=== PATIENT | male | born 1935 | race Caucasian/White ===

== ENCOUNTER 2020-06-09 12:30 | Emergency (ER) | payer MEDICARE, OTHER ==
[~2020-06-09] VITALS: Ht 180 cm; Wt 75.4 kg
[~2020-06-09 12:30] MED LIST: ACHD5005 PO; ALPR0.25 PO; CHELATED MAGNESIUM PO; CHOL10007 PO; FINA5TAB6 PO; LACT20SO2 PO; SAW PALMETTO; TETRACYCLINE 250MG; TMSL.4C PO; [UNRECOGNIZED DRUG - OTHER] PO; magnesium; tylenol prn
[2020-06-09] MEDS ORDERED: LISINOPRIL (13:12)
--- NOTE | 2020-06-09 14:05 | ED Abdominal Pain ---
General Chief Complaint: - Urinary Stated Complaint: TROUBLE URINATING;CONSTIPATION Nursing Triage Note: AMB TO ROOM REPORTS UNABLE TO URINATE TODAY AND FEELING LIKE HE MIGHT BE CONSTIPATION. DOES HAVE HEMORRHOIDS. Sepsis Screen: No Definite Risk Source of Information: Patient Exam Limitations: No Limitations History of Present Illness Date Seen by Provider: Jun 09, 2020 Time Seen by Provider: 13:14 Initial Comments Here with report of lower abdominal fullness and rectal fullness feeling like he has to urinate and/or have bowel movement but is unable to. Last normal bowel movement was yesterday morning. Is urinating okay until last night but did not have his typical multiple urination needs overnight. He is unable to urinate this morning and unable to have a bowel movement. Does have history of hemorrhoids which his primary care doctor recommended not getting surgery for. Does have rather significant essential tremors and is only on lisinopril. Denies nausea, vomiting, diarrhea. Denies weakness, fevers, cough or sore throat. Reports eating and drinking okay. Timing/Duration: 12 Hours, Constant Severity/Quality: Moderate, Other (fullness) Location: Other (lower abdomen) Radiation: Other (suprapubic to rectal) Activities at Onset: None Modifying Factors: Improves With Resting Associated Symptoms: No Back Pain, No Chest Pain, No Diaphoresis, No Fever/Chills, No Nausea/Vomiting, No Shortness of Air, No Swelling/Mass in Abdomen, No Weakness Allergies and Home Medications Allergies Coded Allergies: No Known Drug Allergies (Verified , 02/16/08) Home Medications Alprazolam 0.25 Mg Tablet, 0.25 MG PO Q6H PRN for ANXIETY Prescribed by: ARTUR DENISE on 07/15/16 1158 Cholecalciferol (Vitamin D3) 1,000 Unit Capsule, 3,000 UNIT PO DAILY, (Reported) take 3 (1,000 units) tabs Hydrocodone Bit/Acetaminophen 1 Each Tablet, 1 EACH PO Q4H PRN for PAIN Prescribed by: ARTUR DENISE on 07/15/16 1158 Lactulose 20 Gm/30 Ml Solution, 10 GM PO BID Prescribed by: ARTUR DENISE on 07/14/16 1314 [chelated magnesium] , 250 MG PO DAILY, (Reported) [probiotics with FOS] , 2 TAB PO DAILY, (Reported) Patient Home Medication List Home Medication List Reviewed: Yes Review of Systems Review of Systems Constitutional: see HPI; No chills, No fever EENTM: No Symptoms Reported Respiratory: No Symptoms Reported Cardiovascular: No Symptoms Reported Gastrointestinal: See HPI; Denies Rectal Bleeding; Other (does feel like he has some rectal leakage.) Genitourinary: Denies Hematuria; Other (retention) Musculoskeletal: no symptoms reported Skin: no symptoms reported All Other Systems Reviewed Negative Unless Noted: Yes Past Civgtna-Qqgbwy-Idazkh Hx Past Med/Social Hx: Reviewed Nursing Past Med/Soc Hx Patient Social History Alcohol Use: Denies Use Recreational Drug Use: No Smoking Status: Never a Smoker Recent Foreign Travel: No Contact w/Someone Who Travel: No Recent Infectious Disease Expo: No Recent Hopitalizations: No Immunizations Up To Date Date of Pneumonia Vaccine: Oct 21, 2005 Seasonal Allergies Seasonal Allergies: No Past Medical History Surgeries: Yes (melanoma removed from cheek, nasal fx) Respiratory: No Cardiac: Yes Hypertension Neurological: Yes (TREMORS) Reproductive Disorders: No Benign Prostatic Hyperpl, UTI-Chronic Gastrointestinal: Yes Chronic Constipation, Hemorrhoids Musculoskeletal: No Endocrine: No Cancer: Yes Melanoma Psychosocial: Yes Sleep Difficulties, Anxiety Integumentary: No Blood Disorders: No Family Medical History Reviewed Nursing Family Hx Asthma Cardiovascular disease 19 MOTHER Diabetes mellitus G8 SISTER Hypertension G8 BROTHER Myocardial infarction 19 MOTHER Prostate cancer 19 FATHER Thyroid disease G8 SISTER Physical Exam Vital Signs Vital Signs - First Documented 06/09/20 12:51 Pulse 88 Resp 18 B/P (MAP) 144/72 (96) Pulse Ox 98 O2 Delivery Room Air Capillary Refill : Less Than 3 Seconds Height/Weight/BMI Height: 5'11.00" Weight: 152lbs. 4.0oz. [id number]; 23.00 BMI Method:Stated General Appearance: WD/WN, no apparent distress HEENT: PERRL/EOMI, pharynx normal Neck: full range of motion, supple Respiratory: lungs clear, normal breath sounds Cardiovascular: regular rate, rhythm, no murmur Gastrointestinal: soft, distended, tenderness Extremities: non-tender, normal inspection Back: normal inspection, no vertebral tenderness Neurologic/Psychiatric: alert, oriented x 3 Skin: normal color, warm/dry Progress/Results/Core Measures Results/Orders Lab Results Laboratory Tests Test 06/09/20 13:53 06/09/20 15:10 Range/Units White Blood Count 18.8 H 4.3-11.0 10^3/uL Red Blood Count 4.45 4.35-5.85 10^6/uL Hemoglobin 13.9 13.3-17.7 G/DL Hematocrit 41 40-54 % Mean Corpuscular Volume 92 80-99 FL Mean Corpuscular Hemoglobin 31 25-34 PG Mean Corpuscular Hemoglobin Concent 34 32-36 G/DL Red Cell Distribution Width 12.4 10.0-14.5 % Platelet Count 196 130-400 10^3/uL Mean Platelet Volume 10.9 H 7.4-10.4 FL Neutrophils (%) (Auto) 93 H 42-75 % Lymphocytes (%) (Auto) 3 L 12-44 % Monocytes (%) (Auto) 4 0-12 % Eosinophils (%) (Auto) 0 0-10 % Basophils (%) (Auto) 0 0-10 % Neutrophils # (Auto) 17.5 H 1.8-7.8 X 10^3 Lymphocytes # (Auto) 0.5 L 1.0-4.0 X 10^3 Monocytes # (Auto) 0.8 0.0-1.0 X 10^3 Eosinophils # (Auto) 0.0 0.0-0.3 10^3/uL Basophils # (Auto) 0.0 0.0-0.1 10^3/uL Neutrophils % (Manual) 95 % Lymphocytes % (Manual) 1 % Monocytes % (Manual) 3 % Eosinophils % (Manual) 0 % Basophils % (Manual) 0 % Band Neutrophils 1 % Blood Morphology Comment NORMAL Sodium Level 139 135-145 MMOL/L Potassium Level 4.2 3.6-5.0 MMOL/L Chloride Level 106 98-107 MMOL/L Carbon Dioxide Level 23 21-32 MMOL/L Anion Gap 10 5-14 MMOL/L Blood Urea Nitrogen 22 H 7-18 MG/DL Creatinine 1.10 0.60-1.30 MG/DL Estimat Glomerular Filtration Rate > 60 BUN/Creatinine Ratio 20 Glucose Level 102 70-105 MG/DL Calcium Level 9.2 8.5-10.1 MG/DL Corrected Calcium 9.0 8.5-10.1 MG/DL Total Bilirubin 0.6 0.1-1.0 MG/DL Aspartate Amino Transf (AST/SGOT) 17 5-34 U/L Alanine Aminotransferase (ALT/SGPT) 13 0-55 U/L Alkaline Phosphatase 54 40-136 U/L C-Reactive Protein High Sensitivity 0.04 0.00-0.50 MG/DL Total Protein 6.9 6.4-8.2 GM/DL Albumin 4.2 3.2-4.5 GM/DL Urine Color YELLOW Urine Clarity CLEAR Urine pH 7.0 5-9 Urine Specific Blanchard 1.020 1.016-1.022 Urine Protein NEGATIVE NEGATIVE Urine Glucose (UA) NEGATIVE NEGATIVE Urine Ketones TRACE H NEGATIVE Urine Nitrite NEGATIVE NEGATIVE Urine Bilirubin NEGATIVE NEGATIVE Urine Urobilinogen 0.2 < = 1.0 MG/DL Urine Leukocyte Esterase NEGATIVE NEGATIVE Urine RBC (Auto) NEGATIVE NEGATIVE Urine RBC NONE /HPF Urine WBC NONE /HPF Urine Squamous Epithelial Cells RARE /HPF Urine Crystals NONE /LPF Urine Bacteria TRACE /HPF Urine Casts NONE /LPF Urine Mucus NEGATIVE /LPF Urine Culture Indicated NO My Orders Orders - SAYDA BROOKS MD Ua Culture If Indicated (06/09/20 13:13) Abdomen/Kub 1view (06/09/20 13:27) Cbc With Automated Diff (06/09/20 13:38) Comprehensive Metabolic Panel (06/09/20 13:38) Hs C Reactive Protein (06/09/20 13:38) Ed Iv/Invasive Line Start (06/09/20 13:38) Lactated Ringers (Lr 1000 Ml Iv Solution (06/09/20 13:38) Manual Differential (06/09/20 13:53) Lidocaine 2% (Urojet) (Xylocaine Urojet) (06/09/20 15:00) Catheter(Urinary) Insert & Ass 03,15 (06/09/20 14:49) Bisacodyl Suppository (Dulcolax Supposit (06/09/20 15:08) Medications Given in ED Current Medications Medications Dose Ordered Sig/Mila Route Start Time Stop Time Status Last Admin Dose Admin Bisacodyl 20 mg ONCE ONCE AK 06/09/20 15:15 06/09/20 15:16 DC 06/09/20 15:14 20 MG Lactated Ringer's 1,000 ml @ 0 mls/hr Q0M ONCE IV 06/09/20 13:38 06/09/20 13:40 DC 06/09/20 14:44 1,000 MLS/HR Lidocaine HCl 10 ml ONCE ONCE TOP 06/09/20 15:00 06/09/20 15:01 DC 06/09/20 14:58 10 ML Vital Signs/I&O 06/09/20 12:51 Pulse 88 Resp 18 B/P (MAP) 144/72 (96) Pulse Ox 98 O2 Delivery Room Air Blood Pressure Mean: 96 Progress Progress Note : Progress Note Seen and evaluated. UA ordered. KUB ordered. Bladder scan done and showed approximately 220 mL. Due to aging concerns, we will go ahead and get IV and check labs. Consider CT depending on findings from testing. LR 1 L bolus ordered. Monitor patient. I did do a rectal exam and large stool ball noted. This was confirmed on x-ray. Dulcolax 10 mg suppository 2 inserted per rectum. Patient did have Montalvo catheter placed. UA obtained. Monitor patient. 1630: Patient now draining clear urine. He did have very large bowel movement and states he feels much better. Montalvo catheter to be removed. He understands that he will return if retention returns but I think it was related to the large stool ball. We did discuss outpatient therapy for constipation. Discharged home with return precautions. Patient verbalize understanding instructions and agreement with plan. Diagnostic Imaging Diagonstic Imaging: Xray Plain Films/CT/US/NM/MRI: abdomen Comments [facility] [place], [place] NAME: GRECIA MELO [facility] REC#: [id number] PT STATUS: REG ER : 1935 PHYSICIAN: SAYDA BROOKS MD ADMIT DATE: 06/09/20/ER Signed Date of Exam:06/09/20 ABDOMEN/KUB 1VIEW HISTORY: Unable to urinate. Constipation. Abdominal pain. COMPARISON: 02/13/2013. TECHNIQUE: Supine frontal views of the abdomen. FINDINGS: Moderate stool is seen throughout the colon, with marked stool at the rectum, concerning for impaction. No distended loops of small bowel are seen. There is no large collection of free air. Advanced degenerative changes are seen in the spine at L2-L3 and L3-L4. Bilateral sacroiliac joints are patent. IMPRESSION: 1. Marked stool at the rectum, concerning for impaction. 2. No distended small bowel. Dictated by: Dictated on workstation # [id number] Dict: 06/09/20 1447 Trans: 06/09/20 1458 [id number] Interpreted by: DENIZ LEIJA MD Electronically signed by: DENIZ LEIJA MD 06/09/20 1458 Reviewed: Reviewed by Me (For) Departure Impression Primary Impression: Constipation Qualified Codes: K59.00 - Constipation, unspecified Additional Impression: Urinary retention Disposition: HOME, SELF-CARE Condition: Improved Departure-Patient Inst. Referrals: MARIN BURGOS MD (PCP/Family) Primary Care Physician MARYLU LAVARADO MD Patient Instructions: Urinary Retention, Constipation in Adults Add. Discharge Instructions: All discharge instructions reviewed with patient and/or family. Voiced understanding. Drink plenty of fluids. You may take MiraLAX or the generic, one capful daily as needed to keep stools soft. You may increase or decrease the dose to keep the stools in the normal range. Increase fiber in your diet. Follow-up with Dr. Burgos in the next week or 2 for recheck and further evaluation. You're also due for appointment with Dr. Alvarado. Please call his office tomorrow for follow- up appointment. If you're having difficulties with urination, please return to the emergency department as we may have to reinsert the Montalvo catheter. Return for worse pain, fever, vomiting, weakness, breathing problems or other concerns as needed. Copy Copies To 1: MARIN BURGOS MD Copies To 2: MARYLU ALVARADO MD, TIMOTHY D MD Jun 09, 2020 14:05
--- NOTE | 2020-06-09 14:07 | NUR ---
CALLED AND UDATE TO
[2020-06-09 14:08] LABS: BASOPHILS % (AUTO) 0 % (0-10); EOSINOPHILS % (AUTO) 0 % (0-10); HEMATOCRIT 41 % (40-54); HEMOGLOBIN 13.9 G/DL (13.3-17.7); LYMPHOCYTES # (AUTO) 0.5 X 10^3 (1.0-4.0); LYMPHOCYTES % (AUTO) 3 % (12-44); MEAN CORPUSCULAR HEMOGLOBIN 31 PG (25-34); MEAN CORPUSCULAR HGB CONC 34 G/DL (32-36); MEAN CORPUSCULAR VOLUME 92 FL (80-99); MEAN PLATELET VOLUME 10.9 FL (7.4-10.4); MONOCYTES # (AUTO) 0.8 X 10^3 (0.0-1.0); MONOCYTES % (AUTO) 4 % (0-12); NEUTROPHILS # (AUTO) 17.5 X 10^3 (1.8-7.8); NEUTROPHILS % (AUTO) 93 % (42-75); PLATELET COUNT 196 10^3/uL (130-400); RED CELL DISTRIBUTION WIDTH 12.4 % (10.0-14.5); WHITE BLOOD COUNT 18.8 10^3/uL (4.3-11.0)
[2020-06-09 14:24] LABS: ALANINE AMINOTRANSFERASE 13 U/L (0-55); ALBUMIN 4.2 GM/DL (3.2-4.5); ALKALINE PHOSPHATASE 54 U/L (40-136); BILIRUBIN,TOTAL 0.6 MG/DL (0.1-1.0); CALCIUM 9.2 MG/DL (8.5-10.1); CARBON DIOXIDE 23 MMOL/L (21-32); CHLORIDE 106 MMOL/L (98-107); GFR ESTIMATED > 60; GLUCOSE 102 MG/DL (70-105); POTASSIUM 4.2 MMOL/L (3.6-5.0); SODIUM 139 MMOL/L (135-145); TOTAL PROTEIN 6.9 GM/DL (6.4-8.2)
[2020-06-09] MEDS: LACTATED RINGERS 1,000 ML IV ONE (14:44)
--- NOTE | 2020-06-09 14:51 | Diagnostic Imaging Report ---
HISTORY: Unable to urinate. Constipation. Abdominal pain. COMPARISON: 02/13/2013. TECHNIQUE: Supine frontal views of the abdomen. FINDINGS: Moderate stool is seen throughout the colon, with marked stool at the rectum, concerning for impaction. No distended loops of small bowel are seen. There is no large collection of free air. Advanced degenerative changes are seen in the spine at L2-L3 and L3-L4. Bilateral sacroiliac joints are patent. IMPRESSION: 1. Marked stool at the rectum, concerning for impaction. 2. No distended small bowel. Dictated by: Dictated on workstation # [id number]
[2020-06-09 14:58] LABS: BAND NEUTROPHILS 1 %; BASOPHILS % (MANUAL) 0 %; EOSINOPHILS % (MANUAL) 0 %; LYMPHOCYTES % (MANUAL) 1 %; MONOCYTES % (MANUAL) 3 %; NEUTROPHILS % (MANUAL) 95 %; RBC MORPH NORMAL
[2020-06-09] MEDS: LIDOCAINE UROJET 2% GEL 10 ML PKG TOP ONE (14:58)
[2020-06-09] MEDS ORDERED: BISACODYL 10 MG SUPP (DULCOLAX) ONE (15:08)
[2020-06-09] MEDS: BISACODYL 10 MG SUPP (DULCOLAX) PR ONE (15:14)
[2020-06-09 15:17] LABS: BILIRUBIN,URINE NEGATIVE (NEGATIVE); CLARITY,URINE CLEAR; COLOR,URINE YELLOW; GLUCOSE, URINE (UA) NEGATIVE (NEGATIVE); KETONES,URINE TRACE (NEGATIVE); LEUKOCYTE ESTERASE ,URINE NEGATIVE (NEGATIVE); NITRITE,URINE NEGATIVE (NEGATIVE); PROTEIN,URINE NEGATIVE (NEGATIVE)
[2020-06-09 15:24] LABS: BACTERIA,URINE TRACE /HPF; SQUAMOUS EPITHELIAL CELL,UR RARE /HPF
[2020-06-09 15:34] LABS: BUN/CREATININE RATIO 20
--- NOTE | 2020-06-09 15:57 | NUR ---
REMAINS ON BSC HAVING BM AFTER SUPP INSERTED BY DR BROOKS.
--- NOTE | 2020-06-09 15:58 | NUR ---
Werner baca in [facility] - 06/09/20 at 1635 by PMCCLURE TO ROOM RESTING REPORTS PAIN BETTER
--- NOTE | 2020-06-09 16:35 | NUR ---
PATIENT HAD LG BM WILL REMOVE TAVERAS
--- NOTE | 2020-06-09 16:41 | NUR ---
NITIN REMOVED Addendum: 06/09/20 at 1643 by PMCCLURE APX 600CC OUT
[2020-06-09 17:00] VITALS: BP 130/85
== END 2020-06-09 17:00 | disposition home or self-care (01) ==
LOC: EDUNIT# 12:30 → ER 12:36
DX: K59.00 Constipation, unspecified (principal); R33.9 Retention of urine, unspecified; F41.9 Anxiety disorder, unspecified; Z85.820 Personal history of malignant melanoma of skin; Z82.49 Family history of ischemic heart disease and other diseases of the circulatory system; Z80.42 Family history of malignant neoplasm of prostate
CPT/HCPCS: 36415; 51702; 74018; 80053; 81000; 85007; 85027; 86141

== ENCOUNTER → 2021-02-10 | Outpatient (CLI) | payer MEDICARE, OTHER ==
[~2021-02-10] MED LIST changes: +LISINOPRIL
--- NOTE | 2021-02-10 10:52 | Diagnostic Imaging Report ---
INDICATION: Epigastric pain PROCEDURE: Ultrasound abdomen complete. TECHNIQUE: Multiple real-time grayscale images were obtained of the abdomen in various projections. Liver parenchyma is homogeneous with normal echotexture. There is a 2 cm hyperechoic lesion in the dome of liver that resembles a hemangioma. The portal vein is patent with hepatopetal flow. Hepatic veins are patent. The gallbladder is clear with no stones or wall thickening. Common duct is not dilated. Pancreas is obscured by bowel gas. Spleen is unremarkable. Aorta and IVC appear normal. Right kidney measures 9.8 cm in length. Left kidney measures 10.4 cm in length. There is no mass, calculus or hydronephrosis seen in either kidney. There is no ascites. IMPRESSION: Limited exam because of patient body habitus. There is a well-circumscribed round lesion in the dome of liver consistent with a hemangioma. This was present on exam dated 02/19/2013 and is not appreciably changed. Dictated by: Dictated on workstation # [id number]
== END ==
LOC: RAD 08:35
PROVIDERS: ATTEND Internal Medicine
DX: K76.9 Liver disease, unspecified (principal)
CPT/HCPCS: 76700

== ENCOUNTER 2021-02-22 05:30 | Outpatient (RCR) | payer MEDICARE, OTHER ==
[~2021-02-22] VITALS: Ht 180.3 cm; Wt 75.4 kg
[~2021-02-22 05:30] MED LIST changes: +LISI20TA26 PO
== END 2021-02-22 12:55 | disposition home or self-care (01) ==
LOC: PREOP 05:30
PROVIDERS: ATTEND Internal Medicine
DX: Z01.812 Encounter for preprocedural laboratory examination (principal); R10.13 Epigastric pain; R11.0 Nausea; Z20.822 Contact with and (suspected) exposure to COVID-19
CPT/HCPCS: 87635

== ENCOUNTER 2021-02-24 08:42 | Day surgery (SDC) | payer MEDICARE, OTHER ==
[~2021-02-24] VITALS: Ht 180.3 cm; Wt 75.4 kg
--- NOTE | 2021-02-24 08:38 | Pre-Op Note & Conscious Sedat ---
Pre-Operative Progress Note H&P Reviewed The H&P was reviewed, patient examined and no changes noted. Date H&P Reviewed: February 24, 2021 Time H&P Reviewed: 08:37 Conscious Sedation Pre-Proced ASA Score 2 For ASA 3 and 4: Consider anesthesia and medical clearance. Also, for patients with a history of failed moderate sedation consider anesthesia. Airway Lungs Heart ASA score ASA 1: a normal healthy patient ASA 2: a patient with a mild systemic disease (mid diabetes, controlled hypertension, obesity ASA 3: a patient with a severe systemic disease that limits activity (angina, COPD, prior Myocardial infarction) ASA 4: a patient with an incapacitating disease that is a constant threat to life (CHF, renal failure) ASA 5: a moribund patient not expected to survive 24 hrs. (ruptured aneurysm) ASA 6: a declared brain- patient whose organs are being harvested. For emergent operations, add the letter E after the classification Mallampati Classification Grade 1 Sedation Plan Analgesia, Amnesia, Plan communicated to team members, Discussed options with patient/fam, Discussed risks with patient/fam The patient is an appropriate candidate to undergo the planned procedure, sedation, and anesthesia. The patient immediately re-assessed prior to indication. MARIN COLINDRES MD February 24, 2021 08:38
[~2021-02-24 08:42] MED LIST changes: +LACTATED RINGERS 1,000 ML IV ONE
[2021-02-24] MEDS ORDERED: proPOfol 200 MG/20 ML (DIPRIVAN) VIAL IV ONE (08:49)
[2021-02-24] MEDS ORDERED: LIDOCAINE JELLY 2% 6 ML SYRINGE ONE (09:14)
[2021-02-24] MEDS ORDERED: HURRICAINE EXT TUBE (BENZOCAINE) ONE (09:14)
[2021-02-24] MEDS ORDERED: LIDOCAINE JELLY 2% 6 ML SYRINGE MM PRN (09:15)
[2021-02-24] MEDS ORDERED: LACTATED RINGERS 1,000 ML IV STA (09:15)
[2021-02-24] MEDS ORDERED: HURRICAINE EXT TUBE (BENZOCAINE) XX PRN (09:15)
[2021-02-24 09:24] VITALS: BP 144/78
[2021-02-24 09:40] VITALS: BP 106/55
[2021-02-24 09:45] VITALS: BP 113/57
[2021-02-24 09:50] VITALS: BP 119/62
--- NOTE | 2021-02-24 09:56 | Anesthesia-General Post-Op ---
MAC Patient Condition Mental Status/LOC: Same as Preop Cardiovascular: Satisfactory Nausea/Vomiting: Absent Respiratory: Satisfactory Pain: Controlled Complications: Absent Post Op Complications Complications None Follow Up Care/Instructions Patient Instructions None needed. Anesthesiology Discharge Order Discharge Order Patient is doing well, no complaints, stable vital signs, no apparent adverse anesthesia problems. No complications reported per nursing. AFRICA BURGOS CRNA February 24, 2021 09:56
[2021-02-24 10:25] VITALS: BP 143/76
[2021-02-24 11:55] VITALS: BP 143/76
--- NOTE | 2021-02-24 19:06 | OPERATIVE REPORT ---
DATE OF SERVICE: EGD SUMMARY INDICATION FOR THE PROCEDURE: Epigastric pain, nausea with unremarkable abdominal sonography. DESCRIPTION OF PROCEDURE: The patient was placed in the left lateral decubitus position. The endoscope was inserted into the oral cavity and under direct visualization, advanced into the esophagus. The endoscope was passed down the esophagus through the stomach into the second portion of the duodenum. A careful inspection was made as the endoscope was withdrawn. FINDINGS: The posterior pharynx, arytenoid aperture and true and false vocal folds other than some likely bowing of the cords was unremarkable. The proximal, mid and distal esophagus were unremarkable. No evidence for hiatal hernia was noted. The Z line was distinct and unremarkable. The cardia of the stomach was unremarkable. Several fundal appearing polyps were noted, one was biopsied and ablated and submitted for histopathology. The antrum, pylorus, pyloric channel and duodenal bulb were unremarkable. There are some patchy areas of erythema in the second portion of the duodenum with no other abnormalities being noted. ASSESSMENT AND PLAN: Likely resolving duodenitis. Discussed likelihood of either a virus or bacteria, self-limiting. The patient has still been on restrictive diet, reporting about a 15-pound weight loss from his baseline, but noting improvement in symptoms. He had had an episode of that required emergency room visit for urinary obstruction that was secondary to constipation with a large amount of stool predominantly in the rectum, which resolved with enema evaluation. He is understandably quite concerned about constipation going forward in an individual who has underlying significant longstanding generalized anxiety disorder to begin with. He had many questions, which were answered and discussed non-medication management as well as ongoing MiraLax therapy, which has kept him from recurrence of symptoms without diarrhea. No incontinence and he has had no subsequent problems with urinary retention. In discussion of constipation, the importance of higher fiber diet, regular physical activity and adequate fluid. An extra 30 minutes was spent. The patient was reassured. I will see him back in one month, sooner if there is significant recurrence of any of the above symptoms. Job ID: [id number] DocumentID: [id number] Dictated Date: 02/24/2021 10:35:54 Gear Shaper Set Up Operator Date: 02/24/2021 19:05:47 Dictated By: MARIN COLINDRES MD
== END 2021-02-24 11:55 | disposition home or self-care (01) ==
LOC: ENDO 08:42
PROVIDERS: ATTEND Internal Medicine
DX: K31.7 Polyp of stomach and duodenum (principal); I10 Essential (primary) hypertension; F41.9 Anxiety disorder, unspecified; K21.9 Gastro-esophageal reflux disease without esophagitis; Z79.899 Other long term (current) drug therapy
CPT/HCPCS: 88305

== ENCOUNTER → 2021-03-07 | Outpatient (CLI) | payer MEDICARE, OTHER ==
[~2021-03-07] MED LIST changes: -LACTATED RINGERS 1,000 ML IV ONE
--- NOTE | 2021-03-07 18:29 | Diagnostic Imaging Report ---
PROCEDURE: MR imaging of the brain without contrast. TECHNIQUE: Multiplanar, multisequence MR imaging of the brain was performed without contrast. DATE: March 07, 2021. COMPARISON: None. HISTORY: 85-year-old male, new onset headaches. FINDINGS: There is confluent abnormal predominantly T2 and FLAIR hyperintense signal and a low T1 signal involving the right temporal lobe extending to the right temporal occipital region with abnormal diffusion restriction in this distribution as well as mass effect and loss of visualization of sulci. There is involvement of the cortex and underlying white matter. The masslike area of signal abnormality measures approximately 7.1 x 3.4 cm in axial extent and approximately 3.0 cm in craniocaudal extent. There is a CSF attenuation focus in the right cerebellum consistent with an area of encephalomalacia. There is no additional site with diffusion restriction. There is no abnormal intracranial susceptibility. There is no pronounced volume loss. There is a persistent cavum septum pellucidum. There are multiple foci of T2 and FLAIR hyperintense signal involving the subcortical and periventricular white matter bilaterally most consistent with moderate findings of chronic small vessel ischemic disease. There are remote prior bilateral lacunar infarcts in the periventricular white matter. There is no abnormal extra-axial fluid collection. There is preservation of normal intracranial flow voids. The visualized portions of the paranasal sinuses, mastoid air cells, and middle ears are well aerated bilaterally. IMPRESSION: 1. Masslike area of abnormal signal involving the right temporal lobe extending to the right temporal occipital region with involvement of the cortex and underlying white matter including internal diffusion restriction which may relate to internal high cellularity. A high-grade primary brain malignancy including potentially glioblastoma multiforme is the favored differential diagnostic consideration. This would be most optimally evaluated on pre and postcontrast imaging. Workup for definitive diagnosis is needed. 2. Moderate findings of chronic small vessel ischemic disease with small remote prior lacunar infarcts in the periventricular white matter and findings of encephalomalacia in the right cerebellum. Dictated by: Dictated on workstation # [id number]
== END ==
LOC: RAD 14:00
PROVIDERS: ATTEND Internal Medicine
DX: C71.9 Malignant neoplasm of brain, unspecified (principal); I67.82 Cerebral ischemia
CPT/HCPCS: 70551

== ENCOUNTER → 2021-03-13 | Outpatient (CLI) | payer MEDICARE, OTHER ==
[~2021-03-13] MED LIST changes: +GADOBUTROL 10 MMOL/10 ML (GADAVIST) VIAL IV ONE
--- NOTE | 2021-03-13 12:00 | Diagnostic Imaging Report ---
Clinical indication: Patient is having sinus pressure. Exam: MRI of the brain performed without and with 6 cc of Gadavist IV contrast. Sequences axial T1, axial T1 post IV contrast, coronal T1 fat-sat post IV contrast, sagittal T1 post IV contrast, axial FSPGR mercado postcontrast. Comparison: MRI of the brain without contrast dated 03/07/2021. Findings: There is a heterogeneous enhancing ring-enhancing mass in the right temporal lobe region which correlates to the area of high T2 signal in the prior study. This area of enhancement measures 6.1 cm x 3.6 cm x 3.1 cm (AP x Trans x CC) . There is no significant brain herniation or midline shift. There are no other areas of abnormal IV contrast enhancement seen. There is no hydrocephalus. The extracranial soft tissue, skull, and orbits are unremarkable. There is mild mucosal thickening involving left maxillary sinus and minimal mucosal thickening involving the frontal and ethmoid sinus. IMPRESSION: There is a 6.1 cm in greatest dimension enhancing mass right temporal lobe which correlates to the mass seen on prior MRI. 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 Metastatic disease is suspected to be less likely. Dictated by: Dictated on workstation # [id number]
== END ==
LOC: RAD 08:45
PROVIDERS: ATTEND Internal Medicine
DX: J34.89 Other specified disorders of nose and nasal sinuses (principal); G93.89 Other specified disorders of brain
CPT/HCPCS: 70552

== ENCOUNTER → 2021-03-14 | Outpatient (CLI) | payer MEDICARE, OTHER ==
[~2021-03-14] MED LIST changes: +CATHETER FLUSH 10 ML SYR IV PRN; -GADOBUTROL 10 MMOL/10 ML (GADAVIST) VIAL IV ONE; +HOLD METFORMIN - RECEIVED CONTRAST 20 ML VIAL IV SCH; +IOHEXOL 350 MG/ML 100 ML (OMNIPAQUE 350) VIAL IV ONE; +NS 100 ML (IVPB) BAG IV ONE
--- NOTE | 2021-03-14 16:20 | Diagnostic Imaging Report ---
EXAMINATION: CT chest, abdomen and pelvis with intravenous contrast. TECHNIQUE: Multiple contiguous axial images were obtained through the chest, abdomen and pelvis after the uneventful administration of intravenous contrast. All CT scans use one or more of the following dose optimizing techniques: automated exposure control, MA and/or KvP adjustment based on patient size and exam type or iterative reconstruction. HISTORY: Lung cancer. COMPARISON: 02/13/[address] FINDINGS: There is no edema or pneumonia. No pleural effusion. No pneumothorax. No suspicious nodules. There is no axillary or supraclavicular lymphadenopathy. There is no mediastinal lymphadenopathy. Heart size is normal. There are no coronary artery calcifications. No pericardial effusion. Aorta is normal in caliber. Compared to 2012 there is a stable 18 mm low attenuating lesion in the right hemiliver consistent with a benign abnormality. There is no biliary ductal dilation. Gallbladder is normal. There is an indeterminate 10 x 6 mm low attenuating lesion in the uncinate process of the pancreas. Spleen is normal. Thickening of the adrenal glands appears similar to prior exam, left greater than right. No discrete measurable nodule is seen. The kidneys are normal. There is no hydronephrosis. Urinary bladder is normal. Visualized bowel is normal in caliber without obstruction or inflammation. No free fluid or air. No abdominal or pelvic lymphadenopathy. Aorta is normal in caliber without aneurysm. There are no suspicious osseous lesions. IMPRESSION: 1. New small low-attenuation lesion in the uncinate process of the pancreas, possibly representing a cyst. Liver protocol MRI with Gadavist is recommended for further evaluation. Dictated by: Dictated on workstation # [id number]
== END ==
LOC: RAD 12:16
PROVIDERS: ATTEND Internal Medicine
DX: C71.9 Malignant neoplasm of brain, unspecified (principal); Z85.118 Personal history of other malignant neoplasm of bronchus and lung
CPT/HCPCS: 71260; 74177

== ENCOUNTER 2021-04-12 10:29 | Observation (INO) | payer MEDICARE, OTHER ==
[~2021-04-12] VITALS: Ht 180.3 cm; Wt 65.8 kg
[~2021-04-12 10:29] MED LIST changes: -CATHETER FLUSH 10 ML SYR IV PRN; -HOLD METFORMIN - RECEIVED CONTRAST 20 ML VIAL IV SCH; -IOHEXOL 350 MG/ML 100 ML (OMNIPAQUE 350) VIAL IV ONE; -NS 100 ML (IVPB) BAG IV ONE
[2021-04-12] MEDS ORDERED: ONDANSETRON 4 MG/2 ML (SDV) Z0FRAN IVP ONE (11:45)
[2021-04-12] MEDS ORDERED: NS IV 1000 ML 1,000 ML IV SCH (11:45)
[2021-04-12] MEDS ORDERED: fentaNYL INJ 100 MCG/2 ML AMP IVP ONE (11:45)
--- NOTE | 2021-04-12 11:49 | ED Abdominal Pain ---
General Chief Complaint: Abdominal/GI Problems Stated Complaint: CONSTIPATION Source of Information: Patient, Spouse Exam Limitations: No Limitations History of Present Illness Date Seen by Provider: Apr 12, 2021 Time Seen by Provider: 11:35 Initial Comments Patient presents ER by private conveyance with his and chief complaint that he has been having difficulty passing a bowel movement for the past 1-1/2 weeks. He is having some increasingly intense abdominal pain since midnight. He says is all over his abdomen. He is had a bowel obstruction that spontaneously resolved in the hospital a few years ago. He denies having a recent colonoscopy. No abdominal surgeries except for he had a prostatectomy. No dysuria fevers chills. Has had occasional nausea none right now. Pain is worse with laying down. He has a brain mass that is being treated by Dr. Burgos with dexamethasone. He denies a history of prostate cancer. Rates his pain as 10 out of 10. Allergies and Home Medications Allergies Coded Allergies: No Known Drug Allergies (Verified , 02/16/08) Home Medications Lisinopril 20 Mg Tablet, 20 MG PO DAILY, (Reported) Patient Home Medication List Home Medication List Reviewed: Yes Review of Systems Review of Systems Constitutional: No chills, No diaphoresis, No fever EENTM: No Blurred Vision, No Double Vision Respiratory: Denies Cough, Denies Shortness of Air Cardiovascular: Denies Chest Pain, Denies Lightheadedness Gastrointestinal: See HPI, Abdominal Pain, Constipated; Denies Diarrhea, Denies Nausea Genitourinary: Denies Burning, Denies Discharge Musculoskeletal: No back pain, No joint pain All Other Systems Reviewed Negative Unless Noted: Yes Past Rudjnjz-Oexhmb-Zdaxgd Hx Patient Social History Alcohol Use: Denies Use Smoking Status: Never a Smoker 2nd Hand Smoke Exposure: No Recent Hopitalizations: No Immunizations Up To Date Tetanus Booster (TDap): Unknown Date of Pneumonia Vaccine: Oct 21, 2005 Seasonal Allergies Seasonal Allergies: No Past Medical History Surgeries: Yes (melanoma removed from cheek, nasal fx) Prostatectomy Respiratory: No Currently Using CPAP: No Cardiac: Yes Hypertension Neurological: Yes (TREMORS) Reproductive Disorders: No Sexually Transmitted Disease: No HIV/AIDS: No Benign Prostatic Hyperpl, UTI-Chronic Gastrointestinal: Yes Chronic Constipation, Hemorrhoids Musculoskeletal: No Endocrine: No HEENT: No Loss of Vision: Denies Cancer: Yes Melanoma Did You Recieve Any Treatments: No Psychosocial: Yes Sleep Difficulties, Anxiety Integumentary: No Blood Disorders: No Family Medical History Asthma Cardiovascular disease 19 MOTHER Diabetes mellitus G8 SISTER Hypertension G8 BROTHER Myocardial infarction 19 MOTHER Prostate cancer 19 FATHER Thyroid disease G8 SISTER Physical Exam Vital Signs Vital Signs - First Documented 04/12/21 11:20 Temp 36.7 Pulse 81 Resp 18 B/P (MAP) 143/79 (100) Pulse Ox 98 O2 Delivery Room Air Capillary Refill : Height/Weight/BMI Height: 5'11.00" Weight: 152lbs. 4.0oz. [id number]; 23.19 BMI Method:Stated General Appearance: WD/WN, no apparent distress HEENT: PERRL/EOMI, pharynx normal Neck: non-tender, full range of motion, supple, normal inspection Respiratory: chest non-tender, lungs clear, normal breath sounds, no respiratory distress, no accessory muscle use Cardiovascular: normal peripheral pulses, regular rate, rhythm Gastrointestinal: normal bowel sounds; No no organomegaly (Palpable:); tenderness (Diffuse all 4 quadrants) Neurologic/Psychiatric: alert; No normal mood/affect (Anxious affect); oriented x 3 (Person place and time but not situation) Skin: normal color, warm/dry Progress/Results/Core Measures Results/Orders Lab Results Laboratory Tests Test 04/12/21 11:45 04/12/21 13:05 Range/Units White Blood Count 11.7 H 4.3-11.0 10^3/uL Red Blood Count 4.53 4.30-5.52 10^6/uL Hemoglobin 14.5 13.3-17.7 g/dL Hematocrit 42 40-54 % Mean Corpuscular Volume 93 80-99 fL Mean Corpuscular Hemoglobin 32 25-34 pg Mean Corpuscular Hemoglobin Concent 34 32-36 g/dL Red Cell Distribution Width 12.9 10.0-14.5 % Platelet Count 159 130-400 10^3/uL Mean Platelet Volume 10.6 9.0-12.2 fL Immature Granulocyte % (Auto) 1 % Neutrophils (%) (Auto) 86 H 42-75 % Lymphocytes (%) (Auto) 6 L 12-44 % Monocytes (%) (Auto) 8 0-12 % Eosinophils (%) (Auto) 1 0-10 % Basophils (%) (Auto) 0 0-10 % Neutrophils # (Auto) 10.0 H 1.8-7.8 10^3/uL Lymphocytes # (Auto) 0.6 L 1.0-4.0 10^3/uL Monocytes # (Auto) 0.9 0.0-1.0 10^3/uL Eosinophils # (Auto) 0.1 0.0-0.3 10^3/uL Basophils # (Auto) 0.0 0.0-0.1 10^3/uL Immature Granulocyte # (Auto) 0.1 0.0-0.1 10^3/uL Neutrophils % (Manual) 90 % Lymphocytes % (Manual) 4 % Monocytes % (Manual) 5 % Eosinophils % (Manual) 1 % Basophils % (Manual) 0 % Blood Morphology Comment NORMAL Sodium Level 140 135-145 MMOL/L Potassium Level 4.1 3.6-5.0 MMOL/L Chloride Level 103 98-107 MMOL/L Carbon Dioxide Level 26 21-32 MMOL/L Anion Gap 11 5-14 MMOL/L Blood Urea Nitrogen 49 H 7-18 MG/DL Creatinine 1.18 0.60-1.30 MG/DL Estimat Glomerular Filtration Rate 59 BUN/Creatinine Ratio 42 Glucose Level 108 H 70-105 MG/DL Calcium Level 9.1 8.5-10.1 MG/DL Corrected Calcium 9.2 8.5-10.1 MG/DL Total Bilirubin 0.5 0.1-1.0 MG/DL Aspartate Amino Transf (AST/SGOT) 15 5-34 U/L Alanine Aminotransferase (ALT/SGPT) 21 0-55 U/L Alkaline Phosphatase 46 40-136 U/L C-Reactive Protein High Sensitivity 0.06 0.00-0.50 MG/DL Total Protein 6.3 L 6.4-8.2 GM/DL Albumin 3.9 3.2-4.5 GM/DL Lipase 179 H 8-78 U/L Urine Color YELLOW Urine Clarity CLEAR Urine pH 5.5 5-9 Urine Specific Idamay 1.020 1.016-1.022 Urine Protein NEGATIVE NEGATIVE Urine Glucose (UA) NEGATIVE NEGATIVE Urine Ketones NEGATIVE NEGATIVE Urine Nitrite NEGATIVE NEGATIVE Urine Bilirubin NEGATIVE NEGATIVE Urine Urobilinogen 0.2 < = 1.0 MG/DL Urine Leukocyte Esterase NEGATIVE NEGATIVE Urine RBC (Auto) NEGATIVE NEGATIVE Urine RBC NONE /HPF Urine WBC NONE /HPF Urine Squamous Epithelial Cells 0-2 /HPF Urine Crystals PRESENT H /LPF Urine Uric Acid Crystals MODERATE H /LPF Urine Bacteria FEW H /HPF Urine Casts PRESENT /LPF Urine Hyaline Casts 0-2 H /LPF Urine Mucus SMALL H /LPF Urine Other FEW SPERM H /HPF Urine Culture Indicated NO My Orders Orders - DEANDRE WASHINGTON Ct Abdomen/Pelvis W (04/12/21 11:44) Ed Iv/Invasive Line Start (04/12/21 11:44) Ns Iv 1000 Ml (Sodium Chloride 0.9%) (04/12/21 11:45) Fentanyl Inj (Sublimaze Injection) (04/12/21 11:45) Cbc With Automated Diff (04/12/21 11:44) Comprehensive Metabolic Panel (04/12/21 11:44) Hs C Reactive Protein (04/12/21 11:44) Lipase (04/12/21 11:44) Ua Culture If Indicated (04/12/21 11:44) Ondansetron Injection (Zofran Injectio (04/12/21 11:45) Iohexol Injection (Omnipaque 350 Mg/Ml 1 (04/12/21 12:00) Received Contrast (Hold Metformin- Contr (04/12/21 12:00) Sodium Chloride Flush (Catheter Flush Sy (04/12/21 12:00) Ns (Ivpb) (Sodium Chloride 0.9% Ivpb Bag (04/12/21 12:00) Manual Differential (04/12/21 11:45) [place] Cath (04/12/21 12:47) Lidocaine 2% (Urojet) (Xylocaine Urojet) (04/12/21 13:00) Lidocaine 2% (Urojet) (Xylocaine Urojet) (04/12/21 12:51) Medications Given in ED Current Medications Medications Dose Ordered Sig/Mila Route Start Time Stop Time Status Last Admin Dose Admin Fentanyl Citrate 75 mcg ONCE ONCE IVP 04/12/21 11:45 04/12/21 11:47 DC 04/12/21 11:53 75 MCG Lidocaine HCl 10 ml ONCE ONCE TOP 04/12/21 13:00 04/12/21 13:01 DC 04/12/21 12:52 10 ML Ondansetron HCl 4 mg ONCE ONCE IVP 6/23/21 11:45 04/12/21 11:47 DC 04/12/21 11:54 4 MG Vital Signs/I&O 04/12/21 11:20 Temp 36.7 Pulse 81 Resp 18 B/P (MAP) 143/79 (100) Pulse Ox 98 O2 Delivery Room Air Progress Progress Note #1: Time: 11:48 Progress Note 1 L of normal saline, 75 mcg of fentanyl, 4 mg of Zofran IV and a CT of the abdomen pelvis with IV contrast if tolerable. We will check some labs and urinalysis. Suspect bowel obstruction. Progress Note #2: Time: 14:58 Progress Note Had a lengthy discussion about goals of care. Apparently the family has concerns about hospice because they were told by hospice nurse that all of his ability to make medical decisions would be stripped away from him and given to the government and he would be killed off by dehydration or starving as no food or water would be allowed to him. We did some education and discussed that the family is absolutely part of the decision-making process and that if he is tolerating oral food and fluid no one would stop him from eating and drinking. We discussed the risks of putting a PEG tube in someone to artificially prolong their life outweigh the benefit when they are actively passing away. At this time the is ready to talk to a hospice apprenticeship representative but not ready to elect hospice. They are already on palliative medicine de facto. They do not feel like they would be able to handle his pain management or his constipation at home and I think it would be reasonable to observe the patient. We did discuss doing a GIP through hospice and they are not ready to elect that yet. They do not follow with an oncologist. After the fentanyl the patient has been sleeping and much more comfortable. Diagnostic Imaging Diagonstic Imaging: CT Plain Films/CT/US/NM/MRI: abdomen, pelvis Comments [facility]. [place], [place] NAME: KAMERONGRECIA REC#: [id number] PT STATUS: REG ER : 1935 PHYSICIAN: DEANDRE WASHINGTON MD ADMIT DATE: 04/12/21/ER Signed Date of Exam:04/12/21 CT ABDOMEN/PELVIS W EXAMINATION: CT abdomen and pelvis with intravenous contrast. TECHNIQUE: Multiple contiguous axial images were obtained through the abdomen and pelvis after the uneventful administration of intravenous contrast. All CT scans use one or more of the following dose optimizing techniques: automated exposure control, MA and/or KvP adjustment based on patient size and exam type or iterative reconstruction. HISTORY: Abdominal pain and obstruction. COMPARISON: CT abdomen/pelvis 03/14/2021. FINDINGS: Lung bases: Bibasilar dependent atelectasis. Solid organs: Stable indeterminate hypoattenuating lesion within the right hepatic lobe measuring 1.7 cm. The gallbladder is normal. There is no biliary ductal dilation. Stable subcentimeter hypoattenuating lesion within the pancreatic uncinate process. Spleen is normal. Adrenal glands are normal. The kidneys are normal without hydronephrosis. Bowel: The stomach and small bowel are normal without obstruction. There is a large amount of stool seen within the rectal vault and throughout the colon. Appendix is normal. Peritoneum: There is no intraperitoneal free fluid or free air. No suspicious lymphadenopathy. Vasculature: Calcification of the aorta without aneurysm. Musculoskeletal: Degenerative changes of the spine without suspicious osseous lesion or compression fracture. Pelvis: The prostate gland is normal. The urinary bladder is normal. IMPRESSION: 1. Large volume of stool within the rectal vault and colon which can be seen with constipation in the appropriate clinical setting. No findings of obstruction. 2. Stable hypoattenuating lesion within the right hepatic lobe compared to 03/14/2021. 3. No other acute abnormality in the abdomen or pelvis. 4. Stable subcentimeter hypoattenuating lesion within the pancreatic uncinate process. Dictated by: Dictated on workstation # [id number] Dict: 04/12/21 1254 Trans: 04/12/21 1453 [id number] Interpreted by: FRANKIE WEBBER DO Electronically signed by: FRANKIE WEBBER DO 04/12/21 1453 Reviewed: Reviewed by Me Departure Communication (Admissions) Time/Spoke to Admitting Phy: 15:00 Discussed the case with Dr. Rhodes who agrees to observe the patient with a consult to hospice of their choice. Work on constipation. Impression Primary Impression: Obstipation Additional Impressions: Intractable abdominal pain Need for comfort care Disposition: ADMITTED INPATIENT Condition: Stable Admissions Decision to Admit Reason: Admit from ER (General) Decision to Admit/Date: Apr 12, 2021 Time/Decision to Admit Time: 14:30 Departure-Patient Inst. Referrals: MARIN BURGOS MD (PCP/Family) Primary Care Physician DEANDRE WASHINGTON Apr 12, 2021 11:49
[2021-04-12 11:59] LABS: BASOPHILS % (AUTO) 0 % (0-10); EOSINOPHILS # (AUTO) 0.1 10^3/uL (0.0-0.3); EOSINOPHILS % (AUTO) 1 % (0-10); HEMATOCRIT 42 % (40-54); HEMOGLOBIN 14.5 g/dL (13.3-17.7); LYMPHOCYTES # (AUTO) 0.6 10^3/uL (1.0-4.0); LYMPHOCYTES % (AUTO) 6 % (12-44); MEAN CORPUSCULAR HEMOGLOBIN 32 pg (25-34); MEAN CORPUSCULAR HGB CONC 34 g/dL (32-36); MEAN CORPUSCULAR VOLUME 93 fL (80-99); MEAN PLATELET VOLUME 10.6 fL (9.0-12.2); MONOCYTES # (AUTO) 0.9 10^3/uL (0.0-1.0); MONOCYTES % (AUTO) 8 % (0-12); NEUTROPHILS % (AUTO) 86 % (42-75); PLATELET COUNT 159 10^3/uL (130-400); WHITE BLOOD COUNT 11.7 10^3/uL (4.3-11.0)
[2021-04-12] MEDS ORDERED: NS 100 ML (IVPB) BAG IV ONE (12:00)
[2021-04-12] MEDS ORDERED: IOHEXOL 350 MG/ML 100 ML (OMNIPAQUE 350) VIAL IV ONE (12:00)
[2021-04-12] MEDS ORDERED: HOLD METFORMIN - RECEIVED CONTRAST 20 ML VIAL IV SCH (12:00)
[2021-04-12] MEDS ORDERED: CATHETER FLUSH 10 ML SYR IV PRN ×2 (12:00→17:00)
[2021-04-12 12:09] LABS: ALBUMIN 3.9 GM/DL (3.2-4.5)
[2021-04-12 12:10] LABS: POTASSIUM 4.1 MMOL/L (3.6-5.0)
[2021-04-12 12:11] LABS: CALCIUM 9.1 MG/DL (8.5-10.1)
[2021-04-12 12:12] LABS: TOTAL PROTEIN 6.3 GM/DL (6.4-8.2)
[2021-04-12 12:14] LABS: BILIRUBIN,TOTAL 0.5 MG/DL (0.1-1.0)
[2021-04-12 12:16] LABS: CREATININE SERUM 1.18 MG/DL (0.60-1.30)
[2021-04-12 12:19] LABS: BASOPHILS % (MANUAL) 0 %; EOSINOPHILS % (MANUAL) 1 %; LYMPHOCYTES % (MANUAL) 4 %; MONOCYTES % (MANUAL) 5 %; NEUTROPHILS % (MANUAL) 90 %; RBC MORPH NORMAL
[2021-04-12] MEDS ORDERED: LIDOCAINE UROJET 2% GEL 10 ML PKG ONE (12:51)
[2021-04-12] MEDS ORDERED: LIDOCAINE UROJET 2% GEL 10 ML PKG TOP ONE (13:00)
--- NOTE | 2021-04-12 13:08 | Diagnostic Imaging Report ---
EXAMINATION: CT abdomen and pelvis with intravenous contrast. TECHNIQUE: Multiple contiguous axial images were obtained through the abdomen and pelvis after the uneventful administration of intravenous contrast. All CT scans use one or more of the following dose optimizing techniques: automated exposure control, MA and/or KvP adjustment based on patient size and exam type or iterative reconstruction. HISTORY: Abdominal pain and obstruction. COMPARISON: CT abdomen/pelvis 03/14/2021. FINDINGS: Lung bases: Bibasilar dependent atelectasis. Solid organs: Stable indeterminate hypoattenuating lesion within the right hepatic lobe measuring 1.7 cm. The gallbladder is normal. There is no biliary ductal dilation. Stable subcentimeter hypoattenuating lesion within the pancreatic uncinate process. Spleen is normal. Adrenal glands are normal. The kidneys are normal without hydronephrosis. Bowel: The stomach and small bowel are normal without obstruction. There is a large amount of stool seen within the rectal vault and throughout the colon. Appendix is normal. Peritoneum: There is no intraperitoneal free fluid or free air. No suspicious lymphadenopathy. Vasculature: Calcification of the aorta without aneurysm. Musculoskeletal: Degenerative changes of the spine without suspicious osseous lesion or compression fracture. Pelvis: The prostate gland is normal. The urinary bladder is normal. IMPRESSION: 1. Large volume of stool within the rectal vault and colon which can be seen with constipation in the appropriate clinical setting. No findings of obstruction. 2. Stable hypoattenuating lesion within the right hepatic lobe compared to 03/14/2021. 3. No other acute abnormality in the abdomen or pelvis. 4. Stable subcentimeter hypoattenuating lesion within the pancreatic uncinate process. Dictated by: Dictated on workstation # [id number]
[2021-04-12 13:10] LABS: BILIRUBIN,URINE NEGATIVE (NEGATIVE); CLARITY,URINE CLEAR; COLOR,URINE YELLOW; GLUCOSE, URINE (UA) NEGATIVE (NEGATIVE); KETONES,URINE NEGATIVE (NEGATIVE); LEUKOCYTE ESTERASE ,URINE NEGATIVE (NEGATIVE); NITRITE,URINE NEGATIVE (NEGATIVE); PH,URINE 5.5 (5-9); PROTEIN,URINE NEGATIVE (NEGATIVE)
[2021-04-12 13:46] LABS: BACTERIA,URINE FEW /HPF; SQUAMOUS EPITHELIAL CELL,UR 0-2 /HPF
[2021-04-12 13:47] LABS: HYALINE CASTS, URINE 0-2 /LPF; URIC ACID CRYSTALS,URINE MODERATE /LPF; URINE OTHER FEW SPERM /HPF
[2021-04-12 16:00] VITALS: BP 148/62
[2021-04-12] MEDS ORDERED: ACETAMINOPHEN 325 MG TABLET PO PRN (16:45)
[2021-04-12] MEDS ORDERED: PROMETHAZINE INJ 25 MG/ML (PHENERGAN) AMP IV PRN (16:45)
[2021-04-12] MEDS ORDERED: SIMETHICONE 80 MG (MYLICON) CHEW PO PRN (16:45)
[2021-04-12] MEDS ORDERED: fentaNYL INJ 100 MCG/2 ML AMP IV PRN (16:45)
[2021-04-12] MEDS ORDERED: ONDANSETRON 4 MG/2 ML (SDV) Z0FRAN IV PRN (16:45)
[2021-04-12] MEDS: LACTATED RINGERS 1,000 ML IV SCH (17:14)
[2021-04-12] MEDS: polyethylene glycoL POWDER 17 GM (MIRALAX) PACK PO SCH ×2 (17:14→20:21)
[2021-04-12] MEDS ORDERED: LACTULOSE SYRUP 10GM/15ML (ENULOSE) 30ML UDC PO PRN (18:00)
[2021-04-12] MEDS: KETOROLAC 15 MG/ML VIAL IV PRN (19:08)
[2021-04-12] MEDS ORDERED: LORA-404 PO (19:22)
[2021-04-12] MEDS ORDERED: DEXA4TAB PO (19:22)
[2021-04-12 20:00] VITALS: BP 161/74
[2021-04-12] MEDS: DOCUSATE SODIUM 100 MG (COLACE) CAP PO SCH (20:21)
[2021-04-12] MEDS: LORazepam 0.5 MG (ATIVAN) TABLET PO SCH (20:21)
[2021-04-12] MEDS: SENNA W/DOCUSATE (SENOKOT S) TABLET PO SCH (20:21)
[2021-04-12] MEDS: fentaNYL INJ 100 MCG/2 ML AMP IV PRN ×2 (20:55→23:13)
[2021-04-12] MEDS: BISACODYL 10 MG SUPP (DULCOLAX) PR SCH (20:55)
[2021-04-12] MEDS: FLEET ENEMA ADULT 1 EA BTL PR SCH (23:14)
[2021-04-13] VITALS: BP 130/77
[2021-04-13] MEDS: fentaNYL INJ 100 MCG/2 ML AMP IV PRN ×3 (01:44→08:43)
[2021-04-13] MEDS: LACTATED RINGERS 1,000 ML IV SCH ×3 (02:51→20:44)
[2021-04-13 04:11] VITALS: BP 140/72
[2021-04-13 06:06] LABS: BASOPHILS % (AUTO) 0 % (0-10); EOSINOPHILS % (AUTO) 0 % (0-10); HEMATOCRIT 37 % (40-54); HEMOGLOBIN 12.3 g/dL (13.3-17.7); LYMPHOCYTES # (AUTO) 0.1 10^3/uL (1.0-4.0); LYMPHOCYTES % (AUTO) 2 % (12-44); MEAN CORPUSCULAR HEMOGLOBIN 31 pg (25-34); MEAN CORPUSCULAR HGB CONC 33 g/dL (32-36); MEAN CORPUSCULAR VOLUME 94 fL (80-99); MEAN PLATELET VOLUME 10.8 fL (9.0-12.2); MONOCYTES # (AUTO) 0.3 10^3/uL (0.0-1.0); MONOCYTES % (AUTO) 4 % (0-12); NEUTROPHILS # (AUTO) 8.1 10^3/uL (1.8-7.8); NEUTROPHILS % (AUTO) 94 % (42-75); PLATELET COUNT 123 10^3/uL (130-400); WHITE BLOOD COUNT 8.6 10^3/uL (4.3-11.0)
[2021-04-13 06:32] LABS: BUN/CREATININE RATIO 28; CALCIUM 8.4 MG/DL (8.5-10.1); CARBON DIOXIDE 25 MMOL/L (21-32); CHLORIDE 105 MMOL/L (98-107); CREATININE SERUM 1.04 MG/DL (0.60-1.30); GFR ESTIMATED > 60; GLUCOSE 97 MG/DL (70-105); POTASSIUM 4.6 MMOL/L (3.6-5.0); SODIUM 137 MMOL/L (135-145)
[2021-04-13 08:00] VITALS: BP 154/70
[2021-04-13] MEDS: FLEET ENEMA ADULT 1 EA BTL PR SCH (08:41)
[2021-04-13] MEDS: SENNA W/DOCUSATE (SENOKOT S) TABLET PO SCH ×2 (08:42→20:40)
[2021-04-13] MEDS: LORazepam 0.5 MG (ATIVAN) TABLET PO SCH ×3 (08:42→20:40)
[2021-04-13] MEDS: DOCUSATE SODIUM 100 MG (COLACE) CAP PO SCH ×2 (08:42→20:40)
[2021-04-13] MEDS: BISACODYL 10 MG SUPP (DULCOLAX) PR SCH (08:42)
[2021-04-13] MEDS: KETOROLAC 15 MG/ML VIAL IV PRN (08:42)
[2021-04-13] MEDS: polyethylene glycoL POWDER 17 GM (MIRALAX) PACK PO SCH ×2 (08:43→15:37)
[2021-04-13] MEDS ORDERED: LORA-404 PO (11:57)
[2021-04-13] MEDS ORDERED: MORP100S3 PO (11:57)
[2021-04-13 12:00] VITALS: BP 132/64
--- NOTE | 2021-04-13 15:37 | Consultation - Surgery ---
History of Present Illness History of Present Illness Patient Consulted On(davon/time) 04/13/21 15:37 Date Seen by Provider: Apr 13, 2021 Time Seen by Provider: 15:37 History of Present Illness Counts requested for fecal impaction by Dr. Rhodes. 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 Patient has been on opiates and is having constipation issues. Patient is poor historian and not providing much information. Patient states he is having lower abdominal pain and discomfort. Does not really elaborate more than that. Patient denies any nausea vomiting fever sweats chills shortness of breath or chest pain. Patient has tried to have enemas which have not been productive. He had a CT scan demonstrating fecal impaction with large stool burden of the colon, right hepatic and pancreatic lesion. No family present with him. Allergies and Home Medications Allergies Coded Allergies: No Known Drug Allergies (Verified , 02/16/08) Home Medications Dexamethasone 4 Mg Tablet, 4 MG PO BID, (Reported) Last Action: Reviewed Lorazepam 0.5 Mg Tablet, 0.5 MG PO 0900.1400, (Reported) Last Action: Reviewed Lorazepam 0.5 Mg Tablet, 1 MG PO 2100, (Reported) TAKES 2 (0.5MG) TABS Last Action: Reviewed Morphine Sulfate 100 Mg/5 Ml Solution, 0.5-1 ML PO EVERY 2 HOURS PRN for PAIN- SEVERE (8-10), (Reported) Last Action: Reviewed Patient Home Medication List Home Medication List Reviewed: Yes Past Jqskqaf-Pbpnbg-Qydklg Hx Patient Social History Smoking Status: Never a Smoker 2nd Hand Smoke Exposure: No Recent Hopitalizations: No Alcohol Use?: No Have you traveled recently?: Unable to obtain Immunizations Up To Date Tetanus Booster (TDap): Unknown Date of Pneumonia Vaccine: Oct 21, 2005 Seasonal Allergies Seasonal Allergies: No Surgeries History of Surgeries: Yes (melanoma removed from cheek, nasal fx) Surgeries: Prostatectomy Respiratory History of Respiratory Disorde: No Cardiovascular History of Cardiac Disorders: Yes Cardiac Disorders: Hypertension Neurological History of Neurological Disord: Yes (TREMORS) Reproductive System Hx Reproductive Disorders: No Sexually Transmitted Disease: No HIV/AIDS: No Genitourinary Genitourinary Disorders: Benign Prostatic Hyperpl, UTI-Chronic Gastrointestinal History of Gastrointestinal Di: Yes Gastrointestinal Disorders: Chronic Constipation, Hemorrhoids Musculoskeletal History of Musculoskeletal Dis: No Endocrine History of Endocrine Disorders: No HEENT History of HEENT Disorders: No Loss of Vision: Denies Cancer History of Cancer: Yes Cancer: Melanoma Psychosocial History of Psychiatric Problem: Yes Behavioral Health Disorders: Sleep Difficulties, Anxiety Integumentary History of Skin or Integumenta: No Blood Transfusions History of Blood Disorders: No Reviewed Nursing Assessment Reviewed/Agree w Nursing PMH: Yes Family Medical History Significant Family History: No Pertinent Family Hx Family Medial History: Asthma Cardiovascular disease 19 MOTHER Diabetes mellitus G8 SISTER Hypertension G8 BROTHER Myocardial infarction 19 MOTHER Prostate cancer 19 FATHER Thyroid disease G8 SISTER Review of Systems-General ROS-Unable to Obtain: Limited due to patient Gastrointestinal: constipation; No nausea, No vomiting All Other Systems Reviewed Negative Unless Noted: Yes (Negative excepted noted.) Physical Exam-General Problems Physical Exam Vital Signs Vital Signs - First Documented 04/12/21 11:20 Temp 36.7 Pulse 81 Resp 18 B/P (MAP) 143/79 (100) Pulse Ox 98 O2 Delivery Room Air Capillary Refill : Less Than 3 Seconds General Appearance: no apparent distress, thin HEENT: PERRL/EOMI, normal ENT inspection Neck: non-tender, supple Respiratory: chest non-tender, no respiratory distress, no accessory muscle use Cardiovascular: regular rate, rhythm, no JVD Gastrointestinal: tenderness (Lower abdomen) Rectal: other (Large deniz stool ball in the rectum) Back: no CVA tenderness, no vertebral tenderness Extremities: non-tender, no pedal edema Neurologic/Psychiatric: alert Skin: normal color, warm/dry Lymphatic: no adenopathy Data Review Labs Laboratory Tests 04/13/21 05:22: White Blood Count 8.6, Red Blood Count 3.93L, Hemoglobin 12.3L, Hematocrit 37L, Mean Corpuscular Volume 94, Mean Corpuscular Hemoglobin 31, Mean Corpuscular Hemoglobin Concent 33, Red Cell Distribution Width 12.6, Platelet Count 123L, Mean Platelet Volume 10.8, Immature Granulocyte % (Auto) 1, Neutrophils (%) (Auto) 94H, Lymphocytes (%) (Auto) 2L, Monocytes (%) (Auto) 4, Eosinophils (%) (Auto) 0, Basophils (%) (Auto) 0, Neutrophils # (Auto) 8.1H, Lymphocytes # (Auto) 0.1L, Monocytes # (Auto) 0.3, Eosinophils # (Auto) 0.0, Basophils # (Auto) 0.0, Immature Granulocyte # (Auto) 0.0, Sodium Level 137, Potassium Level 4.6, Chloride Level 105, Carbon Dioxide Level 25, Anion Gap 7, Blood Urea Nitrogen 29H, Creatinine 1.04, Estimat Glomerular Filtration Rate > 60, BUN/Creatinine Ratio 28, Glucose Level 97, Calcium Level 8.4L Assessment/Plan Assessment/Plan Assessment/Plan Fecal impaction Constipation 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 We'll give him MiraLAX prep instructions. Disimpacted patient removing significant stool ball pieces. Patient also to be given soapsuds enema. TATE [email or web address] MONIQUE DELVALLE DO Apr 13, 2021 15:37
[2021-04-13 16:55] VITALS: BP 163/71
[2021-04-13] MEDS ORDERED: polyethylene glycoL Bowel Prep(MIRALAX) 238 GM PO SCH ×2 (17:00→18:15)
--- NOTE | 2021-04-13 17:35 | History & Physical-Hospitalist ---
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 He is a poor historian. He has been having constipation for about a week and a half. He developed abdominal pain yesterday. He also reports headache with right sided facial pain. He denies nausea and vomiting. He denies fevers and chills. He denies chest pain and trouble breathing. Hospice was discussed with his upon arrival in the ER and she was adamantly opposed due to some misconceptions regarding hospice care. Source: patient Exam Limitations: no limitations Date Seen 04/13/21 Time Seen by a Provider: 09:50 Attending Physician Traci Henry MD PCP Trent Burgos MD Referring Physician Date of Admission Apr 12, 2021 at 15:00 Home Medications & Allergies Home Medications Reviewed patient Home Medication Reconciliation performed by pharmacy medication reconciliations physical science technician and/or nursing. Patients Allergies have been reviewed. Allergies Allergies Coded Allergies No Known Drug Allergies (Verified02/16/08) Past Semhmqb-Fweaqd-Tbsztk Hx Patient Social History Tobacco Use?: No Smoking Status: Never a Smoker Use of E-Cig and/or Vaping dev: No Substance use?: No Alcohol Use?: No Pt feels they are or have been: Unable to obtain Immunizations Up To Date Tetanus Booster (TDap): Unknown Date of Pneumonia Vaccine: Oct 21, 2005 Seasonal Allergies Seasonal Allergies: No Current Status Advance Directives: Unable to obtain Communicates: Verbally Primary Language: Colombian Sensory deficits: Vision impairment, Hearing impairment Past Medical History Surgeries: Prostatectomy Currently Using CPAP: No Hypertension Sexually Transmitted Disease: No HIV/AIDS: No Benign Prostatic Hyperpl, UTI-Chronic Chronic Constipation, Hemorrhoids Loss of Vision: Denies Brain, Melanoma Did You Recieve Any Treatments: No Sleep Difficulties, Anxiety Blood Disorders: No Family Medical History Reviewed Nursing Family Hx Asthma Cardiovascular disease 19 MOTHER Diabetes mellitus G8 SISTER Hypertension G8 BROTHER Myocardial infarction 19 MOTHER Prostate cancer 19 FATHER Thyroid disease G8 SISTER Review of Systems Constitutional: weakness EENTM: no symptoms reported Respiratory: no symptoms reported Cardiovascular: no symptoms reported Gastrointestinal: abdominal pain, constipation Genitourinary: no symptoms reported Musculoskeletal: no symptoms reported Skin: no symptoms reported Psychiatric/Neurological: No Symptoms Reported Physical Exam Physical Exam Vital Signs Vital Signs - First Documented 04/12/21 11:20 Temp 36.7 Pulse 81 Resp 18 B/P (MAP) 143/79 (100) Pulse Ox 98 O2 Delivery Room Air Capillary Refill : Less Than 3 Seconds Height, Weight, BMI Height: 5'11.00" Weight: 152lbs. 4.0oz. [id number]; 20.24 BMI Method:Stated General Appearance: No Apparent Distress, Chronically ill, Thin HEENT: PERRL/EOMI, Pharynx Normal Neck: Normal Inspection, Supple Respiratory: Lungs Clear, Normal Breath Sounds, No Respiratory Distress Cardiovascular: Regular Rate, Rhythm, No Edema, No Murmur Gastrointestinal: Soft, Abnormal Bowel Sounds (hypoactive), Tenderness Extremity: Normal Inspection, Non Tender, No Pedal Edema Neurologic/Psychiatric: Alert, Depressed Affect, Motor Weakness Skin: Normal Color, Warm/Dry Results Results/Procedures Labs Laboratory Tests 04/12/21 11:45 04/13/21 05:22 Patient resulted labs reviewed. Imaging: Reviewed Imaging Report Assessment/Plan Admission Diagnosis Obstipation Admission Status: Observation Assessment and Plan Obstipation Opioid induced constipation Pain of metastatic malignancy Glioblastoma multiforme Poor prognosis Currently on palliative Decadron for GBM Continue Decadron Taking opioids for associated pain Begin Oxycontin Constipation for >[address] showed large amount of fecal material, constipation Started on intensive bowel regimen No significant improvement thus far Consider Relistor Consult surgery for assistance Palliative care consulted, appreciate assistance Diagnosis/Problems Diagnosis/Problems (1) Brain tumor Status: Acute (2) Obstipation Status: Acute (3) Intractable abdominal pain Status: Acute (4) Therapeutic opioid-induced constipation (OIC) Status: Acute TRACI HENRY MD Apr 13, 2021 17:35
[2021-04-13] MEDS: oxyCODONE ER 10 MG (OxyCONTIN CR) TAB PO SCH (20:40)
--- NOTE | 2021-04-14 07:31 | Progress Note - Surgery ---
Subjective Date Seen by a Provider: Apr 14, 2021 Time Seen by a Provider: 07:31 Subjective/Events-last exam Patient having multiple bowel movements overnight. Less abdominal discomfort. No new complaints. Denies any nausea vomiting fever sweats chills shortness of breath or chest pain. Objective Exam Vital Signs Date Time Temp Pulse Resp B/P (MAP) Pulse Ox O2 Delivery O2 Flow Rate FiO2 04/13/21 20:00 Room Air 04/13/21 16:55 37.0 60 20 163/71 (101) 98 Room Air 04/13/21 12:00 35.9 58 20 132/64 (86) 98 Room Air 04/13/21 08:00 35.8 63 20 154/70 (98) 97 Room Air 04/13/21 08:00 Room Air I & O 04/14/21 07:00 Intake Total 1400 ml Output Total 2850 ml Balance -1450 ml Capillary Refill : Less Than 3 Seconds General Appearance: No Apparent Distress, Chronically ill, Thin HEENT: PERRL/EOMI, Pharynx Normal Neck: Normal Inspection, Supple Respiratory: Lungs Clear, Normal Breath Sounds, No Respiratory Distress Cardiovascular: Regular Rate, Rhythm, No Edema, No Murmur Gastrointestinal: normal bowel sounds; No no organomegaly (Palpable:); tenderness (Less tenderness lower quadrants) Extremity: Normal Inspection, Non Tender, No Pedal Edema Neurologic/Psychiatric: Alert, Depressed Affect, Motor Weakness Skin: Normal Color, Warm/Dry Assessment/Plan Assessment/Plan Assessment/Plan Fecal impaction Constipation 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 We'll continue bowel regimen. If KUB shows improvement of stool load would slowly advance patient as tolerates. MONIQUE DELVALLE DO Apr 14, 2021 07:31
[2021-04-14 08:00] VITALS: BP 150/83
[2021-04-14] MEDS: DOCUSATE SODIUM 100 MG (COLACE) CAP PO SCH (08:08)
[2021-04-14] MEDS: SENNA W/DOCUSATE (SENOKOT S) TABLET PO SCH (08:09)
[2021-04-14] MEDS: oxyCODONE ER 10 MG (OxyCONTIN CR) TAB PO SCH (08:51)
[2021-04-14] MEDS: LORazepam 0.5 MG (ATIVAN) TABLET PO SCH ×2 (08:51→14:22)
[2021-04-14] MEDS: LACTATED RINGERS 1,000 ML IV SCH (09:13)
--- NOTE | 2021-04-14 09:13 | Diagnostic Imaging Report ---
INDICATION: Constipation. Time of exam 8:42 AM Correlation is made with prior abdominal radiograph from 06/09/2020. Bowel gas pattern is nonobstructed. There is a small amount of stool in the transverse and descending colon. No pathologic calcifications are seen. IMPRESSION: No acute features detected. No significant stool load is identified. Dictated by: Dictated on workstation # [id number]
[2021-04-14] MEDS ORDERED: OXC10TCR PO (12:12)
[2021-04-14] MEDS ORDERED: LACT20SO2 PO (12:12)
[2021-04-14] MEDS ORDERED: SENN1TAB76 PO (12:12)
--- NOTE | 2021-04-14 14:45 | Discharge Summary ---
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 He was started on a bowel regimen and had multiple bowel movements. He was started on an outpatient bowel regimen. His pain was not well controlled and he was started on a long-acting pain medica tion. Hospice care was discussed with his family but his was reluctant. He has a very poor prognosis. They will continue to consider hospice care. He should follow-up with Dr. Colindres. He was discharged home in stable but poor condition. Labs and Pending Lab Test: Home Meds Active Lactulose 20 Gm/30 Ml Solution 10 Gm PO TID PRN 7 Days Stool Softener-Laxative Tablet (Sennosides/Docusate Sodium) 1 Each Tablet 2 Ea PO BID 30 Days Oxycontin (Oxycodone HCl) 10 Mg Tab.er.12h 10 Mg PO BID 14 Days Reported Ativan (Lorazepam) 0.5 Mg Tablet 1 Mg PO 2100 TAKES 2 (0.5MG) TABS Morphine Conc. 20mg/ml (Morphine Sulfate) 100 Mg/5 Ml Solution 0.5-1 Ml PO EVERY 2 HOURS PRN Ativan (Lorazepam) 0.5 Mg Tablet 0.5 Mg PO 0900.1400 Dexamethasone 4 Mg Tablet 4 Mg PO BID Assessment/Pt Instructions Take medications as prescribed. Follow-up with Dr. Colindres. Consider hospice care. Return with worsening symptoms. Discharge Planning: >30 minutes discharge planning Discharge Instructions Discharge Diet: No Restrictions Activity as Tolerated: Yes Discharge Physical Examination Vital Signs Vital Signs Date Time Temp Pulse Resp B/P (MAP) Pulse Ox O2 Delivery O2 Flow Rate FiO2 04/14/21 08:00 36.2 70 18 150/83 (105) 96 Room Air General Appearance: No Apparent Distress, Chronically ill, Thin HEENT: PERRL/EOMI, Pharynx Normal Respiratory: Lungs Clear, Normal Breath Sounds, No Respiratory Distress Cardiovascular: Regular Rate, Rhythm, No Edema, No Murmur Gastrointestinal: Normal Bowel Sounds, Soft, Tenderness Extremity: Normal Inspection, Non Tender, No Pedal Edema Skin: Normal Color, Warm/Dry Neurologic/Psychiatric: Alert, Depressed Affect, Motor Weakness Allergies: Coded Allergies: No Known Drug Allergies (Verified , 02/16/08) Copy Copies To 1: MARIN COLINDRES MD Discharge Summary Date of Admission Apr 12, 2021 at 15:00 Date of Discharge Discharge Date: Apr 14, 2021 Discharge Time: 14:35 Admission Diagnosis Obstipation Comfort Measures/ End of Life Care: Hospice Care (Home) Discharge Diagnosis Obstipation Opioid induced constipation Pain of metastatic malignancy Glioblastoma multiforme Poor prognosis (1) Brain tumor Status: Acute (2) Obstipation Status: Acute (3) Intractable abdominal pain Status: Acute (4) Therapeutic opioid-induced constipation (OIC) Status: Acute REHAN HENRY MD Apr 14, 2021 14:39
[2021-04-14 15:45] VITALS: BP 144/74
== END 2021-04-14 16:13 | disposition home or self-care (01) ==
LOC: EDUNIT# 10:29 → ER 10:31 → 4TH 15:00 → UNDOADMOB 15:00 → 4TH 16:10 → UNDODISOB 04-14 16:10
PROVIDERS: ADMIT Internal Medicine; ATTEND Internal Medicine
DX: K59.03 Drug induced constipation (principal); R10.9 Unspecified abdominal pain; G47.30 Sleep apnea, unspecified; I10 Essential (primary) hypertension; N39.0 Urinary tract infection, site not specified; D48.5 Neoplasm of uncertain behavior of skin; F41.9 Anxiety disorder, unspecified; Z85.820 Personal history of malignant melanoma of skin; Z79.899 Other long term (current) drug therapy; Z83.6 Family history of other diseases of the respiratory system; Z83.3 Family history of diabetes mellitus; Z80.42 Family history of malignant neoplasm of prostate
CPT/HCPCS: 51702; 74018; 74177; 80048; 80053; 81000; 83690; 85007; 85025; 85027; 86141; 96361; 96374; 96375; 99284; G0378; 36415

== ENCOUNTER 2021-04-14 20:38 | Observation (INO) | payer OTHER, MEDICARE ==
[~2021-04-14] VITALS: Ht 182 cm; Wt 90.0 kg
[~2021-04-14 20:38] MED LIST changes: +DEXA4TAB PO; +LORA-404 PO; +MORP100S3 PO; +OXC10TCR PO; +SENN1TAB76 PO
[2021-04-14] MEDS ORDERED: LORazepam INJ 2 MG/ML (ATIVAN) VIAL IVP PRN (20:45)
--- NOTE | 2021-04-14 20:48 | ED General ---
General Stated Complaint: HX BRAIN TUMOR/VIOLENT BEHAVIOR Source of Information: Patient Exam Limitations: No Limitations History of Present Illness Date Seen by Provider: Apr 14, 2021 Time Seen by Provider: 20:44 Initial Comments To ER with reports of severe pain all over. EMS was called by family due to violent behavior. Patient was just discharged earlier today, hospice was to be in route to initiate care. Patient became violent stating he was going to get a gun and kill them. He has a known glioblastoma with questionable pancreatic metastasis. Upon arrival to ER EMS did administer 1 mL (20 mg) of morphine in route to the hospital. He is now cooperative. He does complain of severe pain mostly in the abdomen. Hospice nurse is in route to the hospital to evaluate the patient. Timing/Duration: Other Severity: Moderate Associated Systoms: Headaches Allergies and Home Medications Allergies Coded Allergies: No Known Drug Allergies (Verified , 02/16/08) Home Medications Dexamethasone 4 Mg Tablet, 4 MG PO BID, (Reported) Lactulose 20 Gm/30 Ml Solution, 10 GM PO TID PRN for CONSTIPATION-1ST LINE Prescribed by: REHAN HENRY on 04/14/21 1212 Lorazepam 0.5 Mg Tablet, 0.5 MG PO 0900.1400, (Reported) Lorazepam 0.5 Mg Tablet, 1 MG PO 2100, (Reported) TAKES 2 (0.5MG) TABS Morphine Sulfate 100 Mg/5 Ml Solution, 0.5-1 ML PO EVERY 2 HOURS PRN for PAIN- SEVERE (8-10), (Reported) Oxycodone HCl 10 Mg Tab.er.12h, 10 MG PO BID Prescribed by: REHAN HENRY on 04/14/21 121 Sennosides/Docusate Sodium 1 Each Tablet, 2 EA PO BID Prescribed by: REHAN HENRY on 04/14/21 1212 Patient Home Medication List Home Medication List Reviewed: Yes Review of Systems Review of Systems Constitutional: see HPI EENTM: see HPI Respiratory: no symptoms reported Cardiovascular: no symptoms reported Genitourinary: no symptoms reported Musculoskeletal: see HPI Skin: no symptoms reported Psychiatric/Neurological: No Symptoms Reported Hematologic/Lymphatic: No Symptoms Reported Immunological/Allergic: no symptoms reported Past Balxgej-Rsfymp-Gptvmt Hx Patient Social History 2nd Hand Smoke Exposure: No Recent Hopitalizations: No Immunizations Up To Date Tetanus Booster (TDap): Unknown Date of Pneumonia Vaccine: Oct 21, 2005 Seasonal Allergies Seasonal Allergies: No Past Medical History Surgeries: Yes (melanoma removed from cheek, nasal fx) Prostatectomy Respiratory: No Currently Using CPAP: No Cardiac: Yes Hypertension Neurological: Yes (TREMORS) Reproductive Disorders: No Sexually Transmitted Disease: No HIV/AIDS: No Benign Prostatic Hyperpl, UTI-Chronic Gastrointestinal: Yes Chronic Constipation, Hemorrhoids Musculoskeletal: No Endocrine: No HEENT: No Loss of Vision: Denies Cancer: Yes Brain, Melanoma Did You Recieve Any Treatments: No Psychosocial: Yes Sleep Difficulties, Anxiety Integumentary: No Blood Disorders: No Family Medical History Asthma Cardiovascular disease 19 MOTHER Diabetes mellitus G8 SISTER Hypertension G8 BROTHER Myocardial infarction 19 MOTHER Prostate cancer 19 FATHER Thyroid disease G8 SISTER No Pertinent Family Hx Physical Exam Vital Signs Capillary Refill : Height, Weight, BMI Height: 5'11.00" Weight: 152lbs. 4.0oz. [id number]; 20.24 BMI Method:Stated General Appearance: Chronically ill, Thin, Other ( frail confused tremulous) Eyes: Bilateral Eye Normal Inspection, Bilateral Eye PERRL, Bilateral Eye EOMI Neck: Full Range of Motion, Normal Inspection Respiratory: No Accessory Muscle Use, No Respiratory Distress Cardiovascular: Regular Rate, Rhythm, Normal Peripheral Pulses Gastrointestinal: Normal Bowel Sounds, Soft, Tenderness Neurologic/Psychiatric: Alert, Other (confused) Skin: Normal Color, Warm/Dry Progress/Results/Core Measures Suspected Sepsis SIRS Temperature: Pulse: Respiratory Rate: Blood Pressure / Mean: Results/Orders My Orders Orders - CHAZ SORIANO APRN Lorazepam Injection (Ativan Injection) (04/14/21 20:45) Medications Given in ED Current Medications Medications Dose Ordered Sig/Mila Route Start Time Stop Time Status Last Admin Dose Admin Lorazepam 1 mg ONCE PRN IVP 04/14/21 20:45 04/14/21 21:02 1 MG Vital Signs/I&O Capillary Refill : Departure Communication (Admissions) [facility] hospice nurse here having and daughter sign papers to initiate care with them. Daughter Homa Briseno at [phone] would like to be point of contact so that her mother, patients , can sleep. has POA. They would like him sent to long term upon discharge as they cannot care for him at home. Will admit GIP status with hospice. Impression Primary Impression: Admission for hospice care Additional Impression: Intractable abdominal pain Disposition: ADMITTED INPATIENT Condition: Stable Admissions Decision to Admit Reason: Admit from ER (General) Decision to Admit/Date: Apr 14, 2021 Time/Decision to Admit Time: 21:57 Departure-Patient Inst. Referrals: MARIN COLINDRES MD (PCP/Family) Primary Care Physician CHAZ SORIANO APRN Apr 14, 2021 20:48
[2021-04-14 22:34] VITALS: BP 153/73
[2021-04-14] MEDS ORDERED: CATHETER FLUSH 10 ML SYR IV PRN (23:15)
[2021-04-14] MEDS ORDERED: SALIVA STIMULANT MOUTH SPRAY (BIOTENE) 1.5 OZ MM PRN (23:15)
[2021-04-14] MEDS ORDERED: ONDANSETRON 4 MG/2 ML (SDV) Z0FRAN IVP PRN (23:15)
[2021-04-14] MEDS ORDERED: PROMETHAZINE INJ 25 MG/ML (PHENERGAN) AMP IVP PRN (23:15)
[2021-04-14] MEDS ORDERED: ACETAMINOPHEN 650 MG SUPP (TYLENOL) PR PRN (23:15)
[2021-04-14] MEDS ORDERED: BISACODYL 10 MG SUPP (DULCOLAX) PR PRN (23:15)
[2021-04-14] MEDS ORDERED: GLYCOPYRROLATE 0.2 MG/ML (ROBINUL) 2 ML VIAL IV PRN (23:15)
[2021-04-14] MEDS ORDERED: ARTIFICAL TEARS 0.4 ML UNIT DOSE (REFRESH PLUS) OU PRN (23:15)
[2021-04-14] MEDS ORDERED: ATROPINE 1% OPHTHALMIC SOLN 2 ML SL PRN (23:15)
[2021-04-14] MEDS: morphine (ROXINOL) 10 MG/0.5 ML oral conc 0.5 ML PO PRN (23:40)
[2021-04-14] MEDS: SCOPOLAMINE 1.5 MG (TRANSDERM-SCOP) PATCH TOP SCH (23:40)
[2021-04-14] MEDS: LORazepam INJ 2 MG/ML (ATIVAN) VIAL IVP PRN (23:49)
[2021-04-15] MEDS: morphine INJ 4 MG/ML 1 ML (VIAL/SYRINGE) IV PRN ×2 (03:15→19:45)
[2021-04-15] MEDS: LORazepam INJ 2 MG/ML (ATIVAN) VIAL IVP PRN ×2 (03:15→19:53)
[2021-04-15] MEDS: CATHETER FLUSH 10 ML SYR IV SCH ×3 (06:01→20:54)
[2021-04-15] MEDS ORDERED: SENNA W/DOCUSATE (SENOKOT S) TABLET PO PRN (16:30)
[2021-04-15] MEDS ORDERED: LACTULOSE SYRUP 10GM/15ML (ENULOSE) 30ML UDC PO PRN (16:30)
[2021-04-15] MEDS ORDERED: DOCUSATE SODIUM 100 MG (COLACE) CAP PO PRN (16:30)
--- NOTE | 2021-04-15 17:27 | History & Physical-Hospitalist ---
History of Present Illness HPI/Chief Complaint Jak Aceves is an 85 year old male with glioblastoma multiforme with possible pancreatic metastasis who was recently admitted with obstipation who returned with agitation. He discharged the yesterday and went home with his and daughter. He was reportedly threatening gun violence at his home and his family called EMS. He was given IV pain medication and did not exhibit anymore threatening or agitated behavior. His made the decision to admit him on hospice. Upon my examination, he was resting comfortably in bed and did not report any complaints or concerns. Source: patient Exam Limitations: no limitations Date Seen 04/15/21 Time Seen by a Provider: 10:10 Attending Physician Traci Henry MD PCP Trent Burgos MD Referring Physician Date of Admission Apr 14, 2021 at 21:25 Home Medications & Allergies Home Medications Reviewed patient Home Medication Reconciliation performed by pharmacy medication reconciliations surveying or spatial science technician and/or nursing. Patients Allergies have been reviewed. Allergies Allergies Coded Allergies No Known Drug Allergies (Verified02/16/08) Past Tejmfcy-Llftfm-Jsmhea Hx Patient Social History Tobacco Use?: No Smoking Status: Unknown if Ever Smoked Smokeless Tobacco Frequency: Unknown if Ever Used Use of E-Cig and/or Vaping dev: No Substance use?: No Alcohol Use?: No Pt feels they are or have been: No Immunizations Up To Date Tetanus Booster (TDap): Unknown Date of Pneumonia Vaccine: Oct 21, 2005 Seasonal Allergies Seasonal Allergies: No Current Status Advance Directives: No Communicates: Verbally Primary Language: Serbian Preferred Spoken Language: Serbian Is interpretation needed?: No Sensory deficits: Vision impairment, Hearing impairment Implanted or Applied Medical D: None Past Medical History Surgeries: Prostatectomy Currently Using CPAP: No Hypertension Sexually Transmitted Disease: No HIV/AIDS: No Benign Prostatic Hyperpl, UTI-Chronic Chronic Constipation, Hemorrhoids Loss of Vision: Denies Brain, Melanoma Did You Recieve Any Treatments: No Sleep Difficulties, Anxiety Blood Disorders: No Family Medical History Reviewed Nursing Family Hx Asthma Cardiovascular disease 19 MOTHER Diabetes mellitus G8 SISTER Hypertension G8 BROTHER Myocardial infarction 19 MOTHER Prostate cancer 19 FATHER Thyroid disease G8 SISTER No Pertinent Family Hx Review of Systems Constitutional: no symptoms reported, see HPI Physical Exam Physical Exam Vital Signs Vital Signs - First Documented 04/14/21 04/14/21 21:33 22:21 Temp 37.0 Pulse 70 Resp 20 B/P (MAP) 158/100 (119) Pulse Ox 92 O2 Delivery Room Air Capillary Refill : Less Than 3 Seconds Height, Weight, BMI Height: 5'11.00" Weight: 152lbs. 4.0oz. 69.320521fp; 27.17 BMI Method:Stated General Appearance: No Apparent Distress, Chronically ill, Thin Respiratory: Lungs Clear, Normal Breath Sounds, No Respiratory Distress Cardiovascular: Regular Rate, Rhythm, No Edema, No Murmur Gastrointestinal: Normal Bowel Sounds, Non Tender, Soft Extremity: Normal Inspection, Non Tender, No Pedal Edema Neurologic/Psychiatric: Alert, Depressed Affect, Motor Weakness Skin: Normal Color, Warm/Dry Results Results/Procedures Labs Patient resulted labs reviewed. Assessment/Plan Admission Diagnosis Admission for hospice care Admission Status: Observation Assessment and Plan Admission for hospice care Glioblastoma multiforme Likely pancreatic metastasis Opioid-induced constipation Pain of metastatic malignancy Comfort care orders in place Palliative care consulted Planning for [facility] placement likely Saturday Diagnosis/Problems Diagnosis/Problems (1) Admission for hospice care Status: Acute (2) Brain tumor Status: Acute (3) Intractable abdominal pain Status: Acute (4) Therapeutic opioid-induced constipation (OIC) Status: Acute TRACI HENRY MD Apr 15, 2021 17:27
[2021-04-15] MEDS: polyethylene glycoL POWDER 17 GM (MIRALAX) PACK PO SCH (20:54)
[2021-04-16] MEDS: CATHETER FLUSH 10 ML SYR IV SCH ×3 (05:32→21:24)
[2021-04-16] MEDS: morphine INJ 4 MG/ML 1 ML (VIAL/SYRINGE) IV PRN ×3 (05:39→21:21)
[2021-04-16] MEDS: LORazepam INJ 2 MG/ML (ATIVAN) VIAL IVP PRN ×2 (05:40→21:21)
[2021-04-16] MEDS: polyethylene glycoL POWDER 17 GM (MIRALAX) PACK PO SCH ×2 (08:47→21:21)
--- NOTE | 2021-04-16 13:15 | Progress Note - Hospitalist ---
Subjective HPI/CC On Admission Date Seen by Provider: Apr 16, 2021 Time Seen by Provider: 10:50 Jak Aceves is an 85 year old male with glioblastoma multiforme with possible pancreatic metastasis who was recently admitted with obstipation who returned with agitation. He discharged the yesterday and went home with his and daughter. He was reportedly threatening gun violence at his home and his family called EMS. He was given IV pain medication and did not exhibit anymore threatening or agitated behavior. His made the decision to admit him on hospice. Upon my examination, he was resting comfortably in bed and did not report any complaints or concerns. Subjective/Events-last exam He is thirsty and water was provided for him. He denies pain. He has no other complaints or concerns. Objective Exam Vital Signs Vital Signs Date Time Temp Pulse Resp B/P (MAP) Pulse Ox O2 Delivery O2 Flow Rate FiO2 04/16/21 08:00 Room Air 04/15/21 20:00 98 04/14/21 22:34 73 16 153/73 (99) 04/14/21 21:33 37.0 Capillary Refill : Less Than 3 Seconds General Appearance: No Apparent Distress, Chronically ill HEENT: Other (Dry mucous membranes) Respiratory: Lungs Clear, Normal Breath Sounds, No Respiratory Distress Cardiovascular: Regular Rate, Rhythm, No Edema, No Murmur Gastrointestinal: Normal Bowel Sounds, Soft Extremity: Normal Inspection, No Pedal Edema Neurologic/Psychiatric: Alert, Depressed Affect Skin: Normal Color, Warm/Dry Results/Procedures Lab Patient resulted labs reviewed. Assessment/Plan Assessment and Plan Assess & Plan/Chief Complaint Admission for hospice care Glioblastoma multiforme Likely pancreatic metastasis Opioid-induced constipation Pain of metastatic malignancy Comfort care orders in place Palliative care consulted Planning for snf placement likely Saturday Diagnosis/Problems Diagnosis/Problems (1) Admission for hospice care Status: Acute (2) Brain tumor Status: Acute (3) Intractable abdominal pain Status: Acute (4) Therapeutic opioid-induced constipation (OIC) Status: Acute REHAN HENRY MD Apr 16, 2021 13:15
[2021-04-17] MEDS: morphine INJ 4 MG/ML 1 ML (VIAL/SYRINGE) IV PRN ×4 (02:22→23:39)
[2021-04-17] MEDS: LORazepam INJ 2 MG/ML (ATIVAN) VIAL IVP PRN (02:22)
[2021-04-17] MEDS: CATHETER FLUSH 10 ML SYR IV SCH ×3 (05:18→22:47)
[2021-04-17] MEDS: morphine (ROXINOL) 10 MG/0.5 ML oral conc 0.5 ML PO PRN (05:38)
[2021-04-17] MEDS: polyethylene glycoL POWDER 17 GM (MIRALAX) PACK PO SCH ×2 (07:29→19:29)
--- NOTE | 2021-04-17 11:51 | Progress Note - Hospitalist ---
Subjective HPI/CC On Admission Date Seen by Provider: Apr 17, 2021 Time Seen by Provider: 11:47 Jak Acevse is an 85 year old male with glioblastoma multiforme with possible pancreatic metastasis who was recently admitted with obstipation who returned with agitation. He discharged the yesterday and went home with his and daughter. He was reportedly threatening gun violence at his home and his family called EMS. He was given IV pain medication and did not exhibit anymore threatening or agitated behavior. His made the decision to admit him on hospice. Upon my examination, he was resting comfortably in bed and did not report any complaints or concerns. Subjective/Events-last exam Pt laying in bed comfortably. Opened eyes and said "yes" when resting. Otherwise did not speak. No family at bedside. Objective Exam Vital Signs Vital Signs Date Time Temp Pulse Resp B/P (MAP) Pulse Ox O2 Delivery O2 Flow Rate FiO2 04/17/21 08:00 Room Air 04/16/21 20:00 98 04/14/21 22:34 73 16 153/73 (99) 04/14/21 21:33 37.0 Capillary Refill : Less Than 3 Seconds General Appearance: No Apparent Distress, WD/WN Respiratory: Lungs Clear, No Accessory Muscle Use, No Respiratory Distress Cardiovascular: Regular Rate, Rhythm, No Murmur Gastrointestinal: Soft Results/Procedures Lab Patient resulted labs reviewed. Assessment/Plan Assessment and Plan Assess & Plan/Chief Complaint Admission for hospice care Glioblastoma multiforme Likely pancreatic metastasis Opioid-induced constipation Pain of metastatic malignancy Comfort care orders in place Palliative care consulted Planning for detention placement, accepted at [facility] but bed not available until next week VANNESA MANTILLA MD Apr 17, 2021 11:51
[2021-04-17] MEDS: SCOPOLAMINE 1.5 MG (TRANSDERM-SCOP) PATCH TOP SCH (23:35)
[2021-04-18] MEDS: CATHETER FLUSH 10 ML SYR IV SCH (06:02)
[2021-04-18] MEDS: polyethylene glycoL POWDER 17 GM (MIRALAX) PACK PO SCH (08:20)
--- NOTE | 2021-04-18 09:11 | Discharge Summary ---
Diagnosis/Chief Complaint Date of Admission Apr 14, 2021 at 21:25 Date of Discharge Discharge Date: Apr 17, 2021 Admission Diagnosis Admission for hospice care Primary Care Trent Burgos MD Discharge Diagnosis (1) Admission for hospice care Status: Acute (2) Brain tumor Status: Acute (3) Intractable abdominal pain Status: Acute (4) Therapeutic opioid-induced constipation (OIC) Status: Acute Discharge Summary Discharge Physical Exam Allergies: Coded Allergies: No Known Drug Allergies (Verified , 02/16/08) Vitals & I&Os Vital Signs Date Time Temp Pulse Resp B/P (MAP) Pulse Ox O2 Delivery O2 Flow Rate FiO2 04/18/21 11:00 37.0 73 16 153/73 98 Room Air General Appearance: No Apparent Distress, Chronically ill Cardiovascular: Regular Rate, Rhythm, No Murmur Hospital Course Pt was admitted to [facility] due to erratic behavior at home with inability to care for him in that setting. He has a known inoperable brain tumor and family has elected comfort measures only. He was discharged to [facility] with [facility] to continue comfort care as his symptoms resolved. Labs (last 24 hrs) Patient resulted labs reviewed. Discussion & Recommendations Discharge Planning: >30 minutes discharge planning Discharge Home Medications: Active Scripts Active Lactulose 20 Gm/30 Ml Solution 10 Gm PO TID PRN 7 Days Stool Softener-Laxative Tablet (Sennosides/Docusate Sodium) 1 Each Tablet 2 Ea PO BID 30 Days Oxycontin (Oxycodone HCl) 10 Mg Tab.er.12h 10 Mg PO BID 14 Days Reported Ativan (Lorazepam) 0.5 Mg Tablet 1 Mg PO 2100 TAKES 2 (0.5MG) TABS Morphine Conc. 20mg/ml (Morphine Sulfate) 100 Mg/5 Ml Solution 0.5-1 Ml PO EVERY 2 HOURS PRN Ativan (Lorazepam) 0.5 Mg Tablet 0.5 Mg PO 0900.1400 Dexamethasone 4 Mg Tablet 4 Mg PO BID Instructions to patient/family Please see electronic discharge instructions given to patient. VANNESA MANTILLA MD Apr 18, 2021 09:11
--- NOTE | 2021-04-18 09:14 | Discharge Inst-Simple/Standard ---
Discharge Inst-Standard Patient Instructions/Follow Up Plan of Care/Instructions/FU: Please continue to take your medications as written. Follow up with Dr Burgos. Activity as Tolerated: Yes Discharge Diet: Soft Diet (intolerant of sweets) Return to [facility] Hospital For: Uncontrolled pain, shortness of breath, if you feel you are getting worse. VANNESA MANTILLA MD Apr 18, 2021 09:14
[2021-04-18 11:00] VITALS: BP 153/73
== END 2021-04-18 11:00 | disposition hospice, inpatient (51) ==
LOC: EDUNIT# 20:38 → ER 20:40 → 4TH 21:25 → INTOOBSV 21:25
PROVIDERS: ADMIT Internal Medicine; ATTEND Internal Medicine
DX: Z51.5 Encounter for palliative care (principal); R10.9 Unspecified abdominal pain; R06.02 Shortness of breath; I10 Essential (primary) hypertension; N40.0 Benign prostatic hyperplasia without lower urinary tract symptoms; F41.9 Anxiety disorder, unspecified; N39.0 Urinary tract infection, site not specified; Z79.899 Other long term (current) drug therapy
CPT/HCPCS: 96374; 99284